=== PATIENT | female | born 1950 | race Two or more races ===

== ENCOUNTER 2021-08-10 09:30 | Day surgery (SDC) | payer OTHER ==
[~2021-08-10 09:30] MED LIST: ADULT LOW DOSE81 M1 PO; GLUCOTROL XL5 MG PO; PROTONIX40 MG PO; VITAMIN C100 MG PO; VITAMIN D310 MCG/1 M; [UNRECOGNIZED DRUG - OTHER] PO
== END 2021-08-10 19:30 | disposition home or self-care (01) ==
LOC: CIR.AMB 09:30
PROVIDERS: ATTEND Orthopaedic Surgery
DX: M75.122 Complete rotator cuff tear or rupture of left shoulder, not specified as traumatic (principal); M75.22 Bicipital tendinitis, left shoulder; M75.32 Calcific tendinitis of left shoulder